=== PATIENT | female | born 1980 | race Caucasian/White ===

== ENCOUNTER → 2017-06-07 | Outpatient (CLI) | payer MEDICAID ==
[~2017-06-07] MED LIST: AEROCHAMBER1 DEV IH; ALBUTEROL-200 PUFFS/ IH; AMOX TR-K CLV 875-12 PO; AMOXICILLIN AND1 TA2 PO; ATIVAN GENERIC0.5 MG NG; ATIVAN0.5 MG PO; ATIVAN1 MG PO; CELEXA20 MG PO; CIPRO 500MG TA500 MG PO; DOXYCYCLINE HY100 M4 PO; FLAGYL 500MG.500 MG PO; IBU-8800 MG PO; KEFLEX 500MG.500 MG PO; LEVAQUIN 750 M750 MG PO; MEDROL 4MG. DOSE4 MG PO; MEDROXYPROGESTE10 M1 OR; MULTI VITAMINS1 TA1 PO; NOMEDS XX; NYSTATIN SU60 ML/BOT PO; PHENERGAN 25MG.25 M1 PO; Prilosec20 MG PO; VISTARIL25 M1 PO; XANAX 0.25MG0.25 MG PO; ZITHROMAX 250M250 MG PO; ZITHROMAX Z PA250 MG PO; ZOFRAN ODT4 MG PO
[2017-06-07 20:04] LABS: AMPHETAMINES/METAMPHETAMINES NEGATIVE ng/mL (<1000)
== END ==
LOC: LAB 17:01
PROVIDERS: Obstetrics & Gynecology
DX: Z36.89 Encounter for other specified antenatal screening (principal); Z04.8 Encounter for examination and observation for other specified reasons

== ENCOUNTER → 2017-06-08 | Outpatient (CLI) | payer MEDICAID ==
[2017-06-08 12:50] LABS: HEMOGLOBIN 12.7 g/dL (12.2-16.2); LYMPH # 2.6 K/mm3 (0.7-4.5); LYMPH % 30.2 % (10-50.0)
[2017-06-08 13:56] LABS: ABO BLOOD TYPE B; RH BLOOD TYPE NEGATIVE
[2017-06-09 08:48] LABS: Rapid Plasma Reagin, Quant Non Reactive (NonRea<1:1)
[2017-06-09 09:37] LABS: HBsAg Screen Negative (Negative); HIV Screen 4th Generation wRfx Non Reactive (Non Reactive)
== END ==
LOC: LAB 12:02
PROVIDERS: Obstetrics & Gynecology
DX: Z36.89 Encounter for other specified antenatal screening (principal)
CPT/HCPCS: G0432

== ENCOUNTER → 2017-07-29 | Outpatient (CLI) | payer MEDICAID ==
[2017-08-03 16:03] LABS: Results REPORT
[2017-08-03 16:04] LABS: AFP Value 31.8; Gest. Age on Collection Date 17.3; Gestat. Age Based On EDD; Insulin Dep Diabetes NOT PROVIDED; Maternal Age At EDD 39.5
[2017-08-03 16:05] LABS: DIA MoM 2.48; DIA Value 444.69; DSR (Second Trimester) 1 IN 17; OSBR Risk 1 IN 10000; hCG MoM 1.48; hCG Value 46741; uE3 MoM 0.89; uE3 Value 1.03
[2017-08-03 16:06] LABS: Interpretation POSITIVE FOR DOWN S
== END ==
LOC: LAB 17:50
PROVIDERS: Obstetrics & Gynecology
DX: Z36.89 Encounter for other specified antenatal screening (principal); Z34.80 Encounter for supervision of other normal pregnancy, unspecified trimester